=== PATIENT | female | born 1990 | race Caucasian/White ===

== ENCOUNTER 2025-06-10 16:14 | Outpatient (OUT) | payer MEDICAID, SELFPAY ==
[2025-06-10 17:00] LABS: Hematocrit 35.4 % (36.0-48.0); Hemoglobin 11.2 g/dL (12.0-16.0); Immature Granulocytes Abs Auto 0.03 10^3/uL (0.00-0.03); Immature Granulocytes Pct Auto 0.3 % (0.0-0.5); Lymphocytes Absolute Auto 3.9 10^3/uL (1.2-3.8); Mean Corpuscular HGB Conc 31.6 g/dL (29.9-35.2); Mean Corpuscular Hemoglobin 27.9 pg (26.7-34.0); Mean Corpuscular Volume 88.1 fL (81.0-99.0); Platelet Count 328 10^3/uL (150-450); Red Blood Count 4.02 10^6/uL (4.20-5.40); White Blood Count 11.1 10^3/uL (4.0-11.0)
[2025-06-10 17:15] LABS: Alanine Aminotransferase 18 U/L (14-59); Albumin Globulin Ratio 1.0; Albumin Level 4.1 g/dL (3.4-5.0); Alkaline Phosphatase 117 U/L (46-116); Anion Gap 13.4; Aspartate Amino Transferase 14 U/L (15-37); Blood Urea Nitrogen 20.0 mg/dL (7.0-18.0); Calcium 8.9 mg/dL (8.5-10.1); Carbon Dioxide 25.7 mmol/L (21.0-32.0); Chloride 104 mmol/L (98-107); Estimated GFR (African America >60 (>=60 mL/min/1.73m^2); Estimated GFR (Non-African Ame >60 (>=60 mL/min/1.73m^2); Globulin 4.0 g/dL; Glucose 94 mg/dL (74-106); Potassium 4.1 mmol/L (3.5-5.1); Sodium 139 mmol/L (136-145); Total Protein 8.1 g/dL (6.4-8.2)
== END 2025-06-10 16:15 | disposition home or self-care (01) ==
LOC: LAB 16:18
PROVIDERS: Visit Provider Nurse Practitioner Primary Care
DX: F11.20 Opioid dependence, uncomplicated (principal); F14.20 Cocaine dependence, uncomplicated
CPT/HCPCS: 36415; 80053; 85025; 86317; 87340; 87389; 87522